=== PATIENT | male | born 1965 | race Caucasian/White ===

== ENCOUNTER 2020-01-17 08:07 | Outpatient (REF) | payer OTHER, SELFPAY ==
--- NOTE | 2020-01-17 08:10 | MR_ITS ---
EXAMINATION: MR LUMBAR SPINE WITHOUT CONTRAST CLINICAL INFORMATION: Low back pain. Right lower extremity pain and numbness COMPARISON: Lumbar spine radiographs 12/09/2019. TECHNIQUE: MRI of the lumbar spine was obtained using routine sequences without contrast. FINDINGS: Alignment is normal. Vertebral heights are preserved. No acute bone marrow signal changes. There is slight loss of intervertebral disc height and T2 signal intensity at T11-T12, T12-L1, and L1-L2 related to disc degeneration. The tip of the conus medullaris is located at L1-L2. No mass effect on the conus. Visualized distal cord signal intensity is normal. At T12-L1 there is a broad left central protrusion causing minimal indentation of the thecal sac. No canal stenosis. No mass effect on the traversing or foraminal nerve roots. At L1-L2 there is a shallow right central protrusion causing minimal indentation of the thecal sac. No canal stenosis. No mass effect on the traversing or foraminal nerve roots. At L2-L3 the annular contour is normal. No canal or neuroforaminal compromise. At L3-L4 there is a slightly bulging disc. No canal or neuroforaminal compromise. At L4-L5 there is a slightly bulging disc. No canal or neuroforaminal compromise. At L5-S1 there is a slightly bulging disc. No canal or neuroforaminal compromise. Limited visualization of the retroperitoneal anatomy reveals no abnormal finding. Psoas and paraspinal muscle groups are symmetric. MR/MR lumbar spine wo con IMPRESSION: There is disc degeneration at multiple levels within the lumbar spine. Shallow protrusions at T12-L1 and L1-L2 causing minimal indentation of the thecal sac. No canal stenosis. No mass effect on the traversing or foraminal nerve roots.
== END 2020-01-17 08:08 | disposition home or self-care (01) ==
LOC: HO.MRI 08:07
PROVIDERS: PCP Internal Medicine; Visit Provider Psychiatry & Neurology Neurology
DX: M54.17 Radiculopathy, lumbosacral region (principal); M51.36 Other intervertebral disc degeneration, lumbar region
CPT/HCPCS: 72148